=== PATIENT | female | born 1985 | race Hispanic/Latino ===

== ENCOUNTER 2019-05-13 20:31 | Inpatient (IN) | payer BC ==
[2019-05-13 21:09] VITALS: BMI 31.1
[2019-05-13] MEDS ORDERED: Fentanyl 4 mcg/Bup 0.1% Cadd 100 ML ONE (21:21)
[2019-05-13] MEDS ORDERED: NS / Oxytocin 40 units/1000ml 1,000 ML IV PRN (21:32)
[2019-05-13] MEDS ORDERED: hydrALAZINE 20 MG/ML VIAL SLOW IVP PRN ×2 (21:32)
[2019-05-13] MEDS ORDERED: Promethazine HCl 25 MG/ML VIAL IM PRN (21:32)
[2019-05-13] MEDS ORDERED: Lidocaine 1% (PF) 30 ML VIAL SC PRN (21:32)
[2019-05-13] MEDS ORDERED: Ondansetron PF 4 MG/2 ML Vial IVP PRN (21:32)
[2019-05-13] MEDS ORDERED: NS w/ Oxytocin 10 units 500 ML IV SCH ×2 (21:45)
[2019-05-13] MEDS: Lactated Ringer's 1,000 ML IV SCH (21:46)
[2019-05-13 21:53] LABS: Hemoglobin 14.1 g/dL (12.0-16.0); Mean Corpuscular HGB CONC 33.6 g/dL (32.0-36.0); Mean Corpuscular Hemoglobin 29.1 pg (27.0-31.0); Mean Corpuscular Volume 86.5 fL (78.0-98.0); Mean Platelet Volume 8.9 fL (7.4-10.4); Platelet Count 161 thou/uL (130-400); RBC Distribution Width 12.1 % (11.5-14.5); Red Blood Cell (RBC) Count 4.84 mill/uL (4.20-5.40); White Blood Cell (WBC) Count 10.2 thou/uL (4.8-10.8)
[2019-05-13] MEDS ORDERED: Lidocaine 1.5%/Epinephrine 1:200,000 5 ML AMPUL IJ ONE (22:25)
[2019-05-13 22:32] LABS: Syphilis Antibody Nonreactive (Nonreactive); Syphilis Antibody Index 0.02 S/CO (<1.00 Non-Reactive)
[2019-05-13 23:01] LABS: HBSAg Index 0.46 S/CO (0-0.99); Hep B Surf Ag Non-Reactive S/CO (NonReactive)
--- NOTE | 2019-05-14 00:15 | PDOC.LDPN ---
Labor & Delivery Progress Note - Subjective Subjective: comfortable - Objective Vital signs reviewed and normal: yes General: NAD, resting Uterine fundus: non tender Dilation: 80/0 Effacement: 75% Station: 0 FHT: category 2 [place] contractions every: 2-4 min AROM: clear fluid Plan: continue plan of care -: 34 yo at 40.0 by 10wk sono here for latent labor sIUP, term -80/0 -FHT: Cat II with late & variable decels, AROM (clear) -will admit for active management of labo -epidural in place -continue monitoring, will recheck in hour, continuous FHT monitoring. Labor is progressing will continue with course -vertex on sono
--- NOTE | 2019-05-14 00:18 | PDOC.LDPN ---
Labor & Delivery Progress Note - Subjective Subjective: comfortable - Objective Vital signs reviewed and normal: yes General: NAD, resting Dilation: 7/80/0 FHT: category 2, variable decelerations, late decelerations [place] contractions every: 2-4min Resuscitative measures: amniofusion Plan: resuscitative measures -: 34 yo at 40.0 by 10wk sono here for latent labor sIUP, term -7/80/0 -FHT: Cat II with variable and late decelerations -will bolus for amnioinfusion, position changes -low BP was given ephedrine -will admit for active management of labor -epidural in place Addendum - Attending - Attending Attestation Date/Time: 05/14/19 0026 I personally evaluated the patient and discussed the management with Dr. Maguire I agree with the History, Examination, Assessment and Plan documented above with any addition or exceptions noted below. Cat II Tracing for late and variable decels with periods of minimal variability. + Acceleration with scalp stimulation. IUPC placed and amnioinfusion started, in addition to position changes, fluid bolus to improve tracing. Pt has dilated quickly from 5 to 8cm. Will continue to monitor closely and anticipate vaginal delivery if baby continues to have reassuring status.
[2019-05-14] MEDS: Lactated Ringer's 1,000 ML IV SCH (00:26)
--- NOTE | 2019-05-14 01:04 | PDOC.EVN ---
Event Note - Event Note Event Note: Pt continuing to have recurrent late decels with every contraction, taking longer to recover and has minimal variability despite all resuscitative measures. Cervix is 8cm/100/+1 Discussed recommendation to proceed with delivery at this time for non reassuring heart tracing. Pt in agreeance with plan.
[2019-05-14] MEDS ORDERED: Lidocaine 2% 10 ML INJ ONE (01:10)
--- NOTE | 2019-05-14 01:15 | PDOC.EVN ---
Event Note - Event Note Event Note: Due to persistent late decelerations despite amnioinfusion and no cervical change on recheck, it was discussed with patient need to proceed with c section. Risks and benefits were explained. All questions answered.
[2019-05-14] MEDS ORDERED: MORPHINE 5 MG/10 ML PF VIAL ONE (01:16)
[2019-05-14] MEDS ORDERED: Ondansetron PF 4 MG/2 ML Vial ONE (01:16)
[2019-05-14] MEDS ORDERED: Oxytocin 10 UNITS/ML VIAL ONE ×2 (01:16→02:21)
[2019-05-14] MEDS ORDERED: Bicitra 30 ML UDCUP PO SCH (01:30)
[2019-05-14] MEDS ORDERED: Azithromycin 500 MG in Sodium Chloride 0.9% 250 ML 250 ML IVPB SCH (01:30)
[2019-05-14] MEDS ORDERED: CEFAZOLIN 2 GM in Premix Bag 1 BAG IVPB SCH (01:30)
[2019-05-14] MEDS ORDERED: Metoclopramide HCl 10 MG/2 ML VIAL ONE (01:44)
[2019-05-14] MEDS ORDERED: Naloxone HCl 0.4 mg/ml Vial IV PRN (02:58)
[2019-05-14] MEDS ORDERED: Promethazine HCl 25 MG/ML VIAL IM PRN ×2 (02:58→02:59)
[2019-05-14] MEDS ORDERED: Promethazine HCl 25 MG SUPP PR PRN (02:58)
[2019-05-14] MEDS ORDERED: diphenhydrAMINE 50 MG/ML VIAL IVP PRN ×2 (02:58→02:59)
[2019-05-14] MEDS ORDERED: Ondansetron PF 4 MG/2 ML Vial IVP PRN ×2 (02:58→02:59)
[2019-05-14] MEDS ORDERED: Naloxone HCl 0.4 mg/ml Vial IVP PRN ×4 (02:58→02:59)
[2019-05-14] MEDS ORDERED: ePHEDrine/0.9% NaCl/PF SYRINGE 50 mg/10 ml SLOW IVP PRN (02:59)
[2019-05-14] MEDS ORDERED: Lactated Ringer's 500 ML IV PRN (02:59)
[2019-05-14] MEDS ORDERED: Communication Order-Pharmacy FS SCH ×2 (03:00)
[2019-05-14] MEDS ORDERED: Fentanyl 4 mcg/Bupivacaine 0.1% Cassette 100 ML EPIDURAL SCH (03:00)
[2019-05-14] MEDS ORDERED: Ketorolac Tromethamine 60 MG/2 ML VIAL IVP PRN (03:15)
--- NOTE | 2019-05-14 03:23 | PDOC.OPDEL ---
OB Operative/Delivery Note - Additional Findings/Plan Compilations/Other Findings: Procedure Note Date of Procedure: 05/14/19 Resident Surgeon: Dr. Jose Juan Veliz, Dr. Susanna Maguire Attending Surgeon: Dr. Garrido Procedure: Repeat low transverse caesarean section Preoperative Diagnosis: 1) Term Intrauterine 2) Non-reassuring heart tones Postoperative Diagnosis: 1) Term intrauterine delivered Anesthesia: epidural Indications: The patient is a 34 year old female at 40.0 weeks gestation who presented to L&D in labor. She developed recurrent late decelerations at dilation of 8 and shared decision was made with patient to proceed with c- section. Procedure in Detail: After risks, benefits, and alternatives were explained to the patient, she gave informed consent. Pre-operative antibiotics included ancef , azithromycin. The patient was taken to the operating room and epidural anesthesia was found to be sufficient. She was placed in the supine position with a left tilt and prepped and draped in usual sterile fashion. A Pfannenstiel incision was made with a scalpel and carried down to the level of the fascia which was sharply nicked. The fascial cut was extended bilaterally with Willis sissors. The inferior and superior edges of the cut fascial edges were elevated with Tara clamps and the underlying rectus muscles were sharply and bluntly dissected free. The peritoneum was entered bluntly and retracted manually. Ashish O-ring was placed. The hysterotomy was made and the was noted to be in the occiput posterior presentation. The head was easily delivered by fundal pressure. Mouth and nares were bulb suctioned. Cord clamped and cut and grossly normal female was handed to waiting nurse. Cord blood was obtained. Placenta was manually extracted, found to be intact with 3 vessel cord and discarded. The uterus was externalized and the endometrium was curetted with a dry lap. The hysterotomy was noted to have extended laterally on the left side. The hysterotomy was closed with a running locking 0- Monocryl. An imbricating layer of 0-Monocryl was then placed. 1 figure of eight of 0-monocryl was placed on left edge. There was slight oozing at the left side so surgi-seal was placed. Following this hemostasis was appreciated. The posterior side of the uterus was examined and found to be free from bleeding. The uterus was internalized and hysterotomy was once again found to be hemostatic The peritoneum was closed with 3-0 chromic in the usual running fashion. The fascia was closed with a running non-locking 0-PDS suture. The subcutaneous tissue was irrigated and there were no bleeders. The subcutaneous layer was approximated a running non-locking layer of 3-0 plain gut. The skin was approximated with 1-0 monocryl on a christiane needle and a pressure dressing was placed. All counts were correct. The patient tolerated the procedure well and was taken to the recovery room in stable condition. QBL: 578 ml Complications: 2cm extension of hysterotomy on L side Specimens: Cord blood sent to lab for blood type, cord gas obtained Findings: Grossly normal female . Grossly normal placenta with 3 vessel cord discarded. Drains: Segura to gravity draining blood tinged urine, this was the case before the surgery Addendum - Attending - Attending Attestation Date/Time: 05/14/19 7169 I was present for and assisted in the entire uncomplicated delivery performed by Colby Cha and Andrez. I agree with documented findings as above.
[2019-05-14] MEDS ORDERED: oxyCODONE 5 MG TAB PO PRN (03:29)
[2019-05-14] MEDS ORDERED: diphenhydrAMINE 25 MG CAP PO PRN (05:45)
[2019-05-14] MEDS ORDERED: hydrALAZINE 20 MG/ML VIAL SLOW IVP PRN (05:45)
--- NOTE | 2019-05-14 06:59 | PDOC.EVN ---
Event Note - Event Note Event Note: 4 hr c section post op note S: Some abd tenderness, no flatus/BM, comfortable otherwise BP: 95/46, OVSS PE CV: RRR Resp: CTAB Abd: mildly tender to palpation, normoactive BS, incision site covered and packed. : bustillo in place, blood tinge urine resolved A/P: 4 hours post c section, continue routine care. Continue monitoring blood pressures, low-normal. Pending AM H/H.
--- NOTE | 2019-05-14 07:25 | PDOC.PP ---
Post Progress Note Post Day #: 0 Subjective: Mother states her pain is minimal to none today. She has not tried walking as of yet. She is tolerating PO without N/V/D. She states she has less vaginal bleeding than a regular period. She has no concerns at this time. Patient is advised pain will likely be worse today as the epidural wears off, she has PRN pain medicine in addition to scheduled ibuprofen. PO intake tolerated: yes Flatus: yes Ambulation: yes Vital Signs (12 hours) Temp Pulse Resp BP Pulse Ox 05/14/19 06:40 98.1 F 67 16 95/46 L 05/14/19 05:25 98.4 F 64 16 98/53 L 96 Weight Weight 79.832 kg - Physical Examination General: NAD Cardiovascular: no m/r/g, RRR Respiratory: clear to auscultation bilaterally, non-labored breathing Abdominal: + bowel sounds, no distention, appropriately TTP Fundus firm & at: 1 cm above umbilicus Extremities: negative homans (B) Skin: CS incision dry & intact, no rash Neurological: no gross focal deficits Psychiatric: A&Ox3, normal affect Result Diagrams: 05/13/19 21:38 Additional Labs: Post Labs Blood Type A POSITIVE 05/13/19 21:38 Hep Bs Antigen Non-Reactive S/CO (NonReactive) 05/13/19 21:38 (1) Delivery by section Code(s): [id number] - Status: Acute - Assessment/Plan # PP day 0 - oxycodone for pain PRN, allergy to tylenol - tolerating PO, not ambulating yet - bustillo draining clear this AM - VSS, check hgb tomorrow AM, QBL 587ml - Registered Dietician for other children is Lawrence Heath, advised to call for appt for Mon/Tu - Uterus somewhat boggy will monitor, incision dry and intact Dispo: likely d/c Friday AM Addendum - Attending - Attending Attestation Date/Time: 05/14/[address] Veliz.
--- NOTE | 2019-05-14 11:07 | PDOC.EVN ---
Event Note - Event Note Event Note: have not seen results for cord gas, called lab they will follow up
[2019-05-14] MEDS ORDERED: Bupivacaine 0.25% HCL 30 ML VIAL ONE (11:11)
[2019-05-14] MEDS ORDERED: ePHEDrine/0.9% NaCl/PF SYRINGE 50 mg/10 ml ONE (11:11)
[2019-05-14 11:36] LABS: pH (Cord, venous) 7.23 (7.32-7.43)
[2019-05-14] MEDS ORDERED: Bisacodyl 10 MG SUPP PR PRN (13:25)
[2019-05-14] MEDS ORDERED: Lanolin Ointment 7 GM TUBE TOP PRN (13:25)
[2019-05-14] MEDS ORDERED: Methylergonovine 0.2 MG TAB PO PRN (13:25)
[2019-05-14] MEDS ORDERED: Misoprostol 200 MCG TAB PR PRN (13:25)
[2019-05-14] MEDS ORDERED: Methylergonovine 0.2 MG/ML VIAL IM PRN (13:25)
[2019-05-14] MEDS: traMADol HCl 50 MG TAB PO PRN (18:42)
[2019-05-14] MEDS ORDERED: Sodium Chloride 0.9% 10 ML ONE (21:43)
[2019-05-14] MEDS: Ibuprofen 800 MG TAB PO SCH (21:50)
[2019-05-14] MEDS: Simethicone Chewable 80 MG TAB PO PRN (21:56)
[2019-05-15] MEDS: Ibuprofen 800 MG TAB PO SCH ×3 (05:07→21:54)
[2019-05-15 06:17] LABS: Hemoglobin 11.2 g/dL (12.0-16.0); Mean Corpuscular HGB CONC 33.4 g/dL (32.0-36.0); Mean Corpuscular Hemoglobin 29.4 pg (27.0-31.0); Mean Corpuscular Volume 88.1 fL (78.0-98.0); Mean Platelet Volume 8.4 fL (7.4-10.4); Platelet Count 126 thou/uL (130-400); RBC Distribution Width 12.1 % (11.5-14.5); White Blood Cell (WBC) Count 10.9 thou/uL (4.8-10.8)
--- NOTE | 2019-05-15 07:52 | PDOC.PP ---
Post Progress Note Post Day #: 1 Subjective: Mother states she has almost not pain this morning. She is tolerating PO and ambulating well. No issues with urination. Less bleeding than a period. Passing gas. PO intake tolerated: yes Flatus: yes Ambulation: yes Vital Signs (12 hours) Temp Pulse Resp BP Pulse Ox 05/15/19 07:48 97.6 F 64 14 89/49 L 92 L 05/15/19 05:00 97.8 F 71 18 94/51 L 05/14/19 23:59 97.8 F 67 18 102/50 L 05/14/19 22:00 20 05/14/19 20:00 98.5 F 70 18 95/51 L 98 Weight Weight 79.832 kg - Physical Examination General: NAD Cardiovascular: no m/r/g, RRR Respiratory: clear to auscultation bilaterally, non-labored breathing Abdominal: + bowel sounds, lochia, no distention, appropriately TTP Fundus firm & at: 1 cm below umbilicus Extremities: negative homans (B) Skin: CS incision dry & intact, no rash Neurological: no gross focal deficits Psychiatric: A&Ox3, normal affect Result Diagrams: 05/15/19 06:04 Additional Labs: Post Labs Blood Type A POSITIVE 05/13/19 21:38 Hep Bs Antigen Non-Reactive S/CO (NonReactive) 05/13/19 21:38 (1) Delivery by section Code(s): [id number] - Status: Acute - Assessment/Plan # PP day 1, pLTCS 0140 on 05/14 - oxycodone for pain PRN, allergy to tylenol - tolerating PO, ambulating without difficulty - hgb 11.2, VSS - [employer] Display for other children is Lawrence Ordonez, advised to call for appt for infant Fri/ - Uterus at 1 cm below umbilicus, still appropriate TTP Dispo: planning on d/friday AM Addendum - Attending - Attending Attestation Date/Time: 05/15/19 1042 I personally evaluated the patient and discussed the management with Dr. Veliz and team. I agree with the History, Examination, Assessment and Plan documented above with any addition or exceptions noted below.
[2019-05-15] MEDS ORDERED: Adacel (T-DAP) 0.5 ML SYRINGE IM ONE (09:00)
[2019-05-15] MEDS: Prenatal Vitamin 1 TAB PO SCH (09:32)
[2019-05-15] MEDS: Simethicone Chewable 80 MG TAB PO PRN ×2 (12:33→23:00)
[2019-05-15] MEDS: traMADol HCl 50 MG TAB PO PRN ×2 (12:37→21:55)
--- NOTE | 2019-05-16 05:23 | PDOC.PP ---
Post Progress Note Post Day #: 2 Subjective: This morning patient stated she was doing well. Ambulating without difficulty. Does complain of some constipation and straining. No blood in stool. No pain with urination. States pain is well controlled. PO intake tolerated: yes Flatus: yes Ambulation: yes Vital Signs (12 hours) Temp Pulse Resp BP BP Pulse Ox 05/15/19 23:04 97.9 F 82 16 95/63 05/15/19 19:15 99.1 F 67 16 95/51 L 98 Weight Weight 79.832 kg - Physical Examination General: NAD Cardiovascular: no m/r/g, RRR Respiratory: clear to auscultation bilaterally, non-labored breathing Abdominal: + bowel sounds, lochia, no distention, appropriately TTP Extremities: negative homans (B) Skin: CS incision dry & intact, no rash Deviation from normal: 2 cm below umbilicus Neurological: no gross focal deficits Psychiatric: A&Ox3, normal affect Result Diagrams: 05/16/19 07:30 Additional Labs: Post Labs Blood Type A POSITIVE 05/13/19 21:38 Hep Bs Antigen Non-Reactive S/CO (NonReactive) 05/13/19 21:38 (1) Delivery by section Code(s): [id number] - Status: Acute - Assessment/Plan # PP day 2, pLTCS 0140 on 05/14 - oxycodone for pain PRN, allergy to tylenol - tolerating PO, ambulating without difficulty - hgb 11.2, VSS - Funeral Driver for other children is Lawrence Ordonez, advised to call for appt for infant Mon/Tu - Uterus at 2 cm below umbilicus, still appropriate TTP Dispo: d/c home with oxycodone PRN, ibuprofen, docusate, iron Patient will f/u with PCP Dr. Beatty in 2 weeks, f/u on constipation.
[2019-05-16] MEDS: Ibuprofen 800 MG TAB PO SCH (07:55)
[2019-05-16] MEDS: Prenatal Vitamin 1 TAB PO SCH (07:55)
[2019-05-16 08:04] VITALS: BP 96/53; TEMP 97.7
[2019-05-16 08:09] LABS: Hemoglobin 10.7 g/dL (12.0-16.0); Mean Corpuscular HGB CONC 33.3 g/dL (32.0-36.0); Mean Corpuscular Hemoglobin 29.3 pg (27.0-31.0); Mean Platelet Volume 8.8 fL (7.4-10.4); Platelet Count 136 thou/uL (130-400); Red Blood Cell (RBC) Count 3.66 mill/uL (4.20-5.40); White Blood Cell (WBC) Count 9.6 thou/uL (4.8-10.8)
[2019-05-19] MEDS ORDERED: Ibuprofen 800 MG TAB PO SCH (06:00)
== END 2019-05-16 11:15 | disposition home or self-care (01) | DRG 788 ==
LOC: L&D/OP 20:31 → L&D 21:21 → 3SE 05-14 05:29
PROVIDERS: ADMIT Family Medicine; ATTEND Family Medicine
PROC: 10907ZC Drainage of Amniotic Fluid, Therapeutic from Products of Conception, Via Natural or Artificial Opening (ICD-10-PCS; 2019-05-13)
PROC: 10H07YZ Insertion of Other Device into Products of Conception, Via Natural or Artificial Opening (ICD-10-PCS; principal; 2019-05-14)
PROC: 10D00Z1 Extraction of Products of Conception, Low, Open Approach (ICD-10-PCS; 2019-05-14)
DX: O76 Abnormality in fetal heart rate and rhythm complicating labor and delivery (principal); Z3A.40 40 weeks gestation of pregnancy; Z37.0 Single live birth
CPT/HCPCS: 36415; 51702; 76815; 82805; 85027; 86780; 86850; 86900; 86901; 87340; 99285; J0456; J1885; J2001; J2274; J2405; J2590; J2765; J3490; J7050; S0020